=== PATIENT | male | born 1960 | race Caucasian/White ===

== ENCOUNTER 2021-09-09 17:16 | Emergency (ER) | payer OTHER ==
[~2021-09-09] VITALS: Ht 180.3 cm; Wt 122.5 kg
[2021-09-09 17:25] VITALS: BP 145/69
[2021-09-09 18:45] VITALS: BP 134/77
== END 2021-09-09 19:30 | disposition home or self-care (01) ==
LOC: MED 17:16
DX: S22.31XA Fracture of one rib, right side, initial encounter for closed fracture (principal); Z98.890 Other specified postprocedural states; Z88.5 Allergy status to narcotic agent; W18.39XA Other fall on same level, initial encounter; Y92.89 Other specified places as the place of occurrence of the external cause; Y93.89 Activity, other specified; Y99.8 Other external cause status
CPT/HCPCS: 71101; 93005; 99283

== ENCOUNTER 2022-09-07 10:59 | Emergency (ER) | payer OTHER ==
[~2022-09-07] VITALS: Ht 175.3 cm; Wt 83.9 kg
[2022-09-07 11:18] VITALS: BP 153/84
--- NOTE | 2022-09-07 13:56 | NUR ---
PT LEFT WITHOUT PAPERWORK
== END 2022-09-07 13:56 | disposition home or self-care (01) ==
LOC: MED 10:59
DX: M54.9 Dorsalgia, unspecified (principal); E11.9 Type 2 diabetes mellitus without complications; I10 Essential (primary) hypertension; Z76.0 Encounter for issue of repeat prescription; Z88.5 Allergy status to narcotic agent
CPT/HCPCS: 99281